=== PATIENT | female | born 1975 | race Caucasian/White ===

== ENCOUNTER → 2022-03-23 10:45 | Outpatient (CLI) | payer OTHER, BC, SELFPAY ==
[2022-03-23 13:55] LABS: Erythrocyte Sedimentation Rate 8 MM/HR (0-20)
[2022-03-23 14:02] LABS: Alanine Aminotransferase 23 IU/L (<35); Alkaline Phosphatase 93 U/L (38-126); Aspartate Aminotransferase 29 IU/L (14-36); BUN Creatinine Ratio 19.7 (6-22); Blood Urea Nitrogen 13 mg/dL (7-17); Calcium 9.4 mg/dL (8.4-10.2); Carbon Dioxide 25 mmol/L (22-32); Chloride 104 mmol/L (98-107); Estimated Glomerular Filt Rate > 60 mL/min (>60); Glucose 104 mg/dL (70-100); Potassium 3.7 mmol/L (3.4-5.1); Sodium 137 mmol/L (137-145)
[2022-03-23 14:03] LABS: Albumin 4.7 g/dL (3.5-5.0); Albumin Globulin Ratio 1.4 (1.0-2.8); Globulin 3.4 g/dL (1.7-4.1); Total Protein 8.1 g/dL (6.3-8.2)
[2022-03-23 14:04] LABS: HEMOLYSIS < 15 (0-50)
[2022-03-23 23:16] LABS: Thyroid Stimulating Hormone 0.122 uIU/mL (0.47-4.68)
[2022-03-24 07:25] LABS: RPR Screen Non Reactive (Non Reactive)
[2022-03-24 21:58] LABS: Treponema pallidum Antibodies Non Reactive (Non Reactive)
[2022-03-25 11:30] LABS: Angiotensin Converting Enzyme 31 U/L (14-82)
[2022-03-25 14:50] LABS: C-Reactive Protein Quant 1.1 mg/dL (<1.0)
[2022-03-26 06:16] LABS: QuantiFERON Mitogen Value >10.00 IU/mL (.); QuantiFERON Nil Value 0.02 IU/mL (.); QuantiFERON TB Gold Plus Negative (Negative); QuantiFERON TB1 Ag Value 0.01 IU/mL (.); QuantiFERON TB2 Ag Value 0.01 IU/mL (.)
[2022-03-26 11:36] LABS: Lysozyme (Muramidase) 5.3 ug/mL (2.5-12.9)
[2022-03-27 17:42] LABS: ANA Screen, IFA Positive (.)
[2022-03-31 15:38] LABS: HLA B27 Positive (.)
== END ==
PROVIDERS: Referring Provider Ophthalmology; Visit Provider Ophthalmology
DX: H44.112 Panuveitis, left eye (principal)
CPT/HCPCS: 36415; 80053; 81374; 82164; 84443; 85549; 85651; 86038; 86140; 86480; 86592; 86780